=== PATIENT | male | born 1950 | race African-American/Black ===

== ENCOUNTER 2020-09-15 13:52 | Inpatient (IN) ==
[2020-09-15 16:40] LABS: Basophils % 0.4 % (0.0-0.8); Eosinophils # 0.1 10*3/uL (0.0-0.87); Eosinophils % 1.5 % (0.00-10.9); Immature Granulocytes % 0.5 %; Immature Granulocytes Absolute 0.04 #; Lymphocytes # 1.6 10*3/uL (1.4-4.0); Lymphocytes % 19.4 % (21.2-54.2); Mean Corpuscular HGB Conc 24.6 GM/DL (32-36); Mean Corpuscular Volume 61.2 FL (87-102); Mean Platelet Volume 8.5 FL (9.6-12.0); Monocytes % 5.1 % (1.7-12.7); NRBC # 0.03 10*3/uL; Neutrophils % 73.1 % (38.7-73.9); Platelet Count 600 T/CUMM (130-400); Red Blood Count 3.92 MC/CUMM (3.8-5.5); Red Cell Distribution Width 23.6 % (9.3-17.3); White Blood Count 8.2 T/CUMM (4-12)
[2020-09-15 16:46] LABS: Hemoglobin 5.9 GM/DL (14.0-18.0)
[2020-09-15] MEDS ORDERED: SODIUM CHLORIDE 0.9% 1,000 ML IV PRN ×2 (16:50→21:41)
[2020-09-15 17:05] LABS: Albumin 3.9 G/DL (3.4-5.0); Bilirubin,Total 0.4 MG/DL (0.2-1.0); Calcium 9.5 MG/DL (8.5-10.1); Osmolality,Calculated 268.1 MOS/KG (273-304); Potassium 3.6 MMOL/L (3.5-5.1); Total Protein 9.4 G/DL (6.4-8.2)
[2020-09-15 21:30] LABS: % Iron Saturation 2.2 % (18-50); Albumin 3.5 G/DL (3.4-5.0); Calcium 9.6 MG/DL (8.5-10.1); Ferritin 4.5 ng/ml (26-388); Osmolality,Calculated 273.8 MOS/KG (273-304); Potassium 3.4 MMOL/L (3.5-5.1)
[2020-09-15 21:32] LABS: Folate 10.21 NG/ML (5.38-24.0)
[2020-09-15 23:25] LABS: Bilirubin,Urine Negative (Negative); Blood, Urine Negative (Negative); Calcium Oxalate Crystals,Urine Occasional /HPF (Few); Glucose,Urine (UA) Negative (Negative); Hyaline Casts,Urine 5 /LPF (0-3); Ketones,Urine Negative (Negative); Mucus,Urine Occasional /LPF (Occasional); Nitrite,Urine Negative (Negative); Protein,Urine Negative; RBC,Urine 1 /HPF (0-4); Squamous Epithelial Cell,Urine Occasional /HPF (0-10); Urine Appearance CLEAR (Clear); Urine Color Yellow (Yellow); Urine Specific Gravity 1.021 (1.001-1.035); Urine Urobilinogen < 2.0 EU/DL (0.2-1.0); WBC,Urine 9 /HPF (0-6)
[2020-09-16 06:52] LABS: Basophils % 0.6 % (0.0-0.8); Eosinophils # 0.1 10*3/uL (0.0-0.87); Eosinophils % 1.4 % (0.00-10.9); Hematocrit 26.2 VOL% (42.0-52.0); Immature Granulocytes % 0.6 %; Immature Granulocytes Absolute 0.04 #; Lymphocytes # 1.4 10*3/uL (1.4-4.0); Lymphocytes % 19.9 % (21.2-54.2); Mean Platelet Volume 8.6 FL (9.6-12.0); Monocytes % 7.9 % (1.7-12.7); NRBC # 0.04 10*3/uL; Neutrophils % 69.6 % (38.7-73.9); Platelet Count 473 T/CUMM (130-400); Red Blood Count 4.03 MC/CUMM (3.8-5.5); Red Cell Distribution Width 29.9 % (9.3-17.3); White Blood Count 6.9 T/CUMM (4-12)
[2020-09-16 07:01] LABS: Hemoglobin 7.6 GM/DL (14.0-18.0)
[2020-09-16 07:14] LABS: Hypochromasia 2+; Target Cells Few
[2020-09-16 07:15] LABS: Microcytosis 2+; Ovalocytes Slight; Platelet Estimate Increased
[2020-09-16] MEDS: ZALEPLON 5 MG CAPSULE PO PRN (22:33)
[2020-09-17 05:25] LABS: Basophils % 0.6 % (0.0-0.8); Eosinophils # 0.2 10*3/uL (0.0-0.87); Eosinophils % 3.2 % (0.00-10.9); Hematocrit 26.2 VOL% (42.0-52.0); Hemoglobin 7.5 GM/DL (14.0-18.0); Immature Granulocytes % 0.3 %; Immature Granulocytes Absolute 0.02 #; Lymphocytes # 1.4 10*3/uL (1.4-4.0); Lymphocytes % 21.3 % (21.2-54.2); Mean Corpuscular HGB Conc 28.6 GM/DL (32-36); Mean Platelet Volume 8.9 FL (9.6-12.0); Monocytes % 8.4 % (1.7-12.7); NRBC # 0.03 10*3/uL; Neutrophils % 66.2 % (38.7-73.9); Platelet Count 465 T/CUMM (130-400); Red Blood Count 4.03 MC/CUMM (3.8-5.5); Red Cell Distribution Width 29.4 % (9.3-17.3); White Blood Count 6.5 T/CUMM (4-12)
[2020-09-17 05:32] LABS: PT Patient Result 11.4 SECS (9.8-11.9)
[2020-09-17 05:48] LABS: Calcium 9.2 MG/DL (8.5-10.1); Osmolality,Calculated 272.7 MOS/KG (273-304); Potassium 3.5 MMOL/L (3.5-5.1)
[2020-09-17 05:50] LABS: Hypochromasia 2+; Microcytosis 1+; Platelet Estimate Adequate; Target Cells Few
[2020-09-17] MEDS: BISACODYL 5 MG TABLET PO SCH ×4 (07:51→23:15)
[2020-09-17] MEDS: LACTATED RINGERS 1,000 ML IV SCH (09:20)
[2020-09-17] MEDS ORDERED: propofoL 200 MG/20 ML VIAL IV ONE (09:24)
[2020-09-17] MEDS ORDERED: LIDOCAINE 2% 5 ML VIAL ONE (09:24)
[2020-09-17] MEDS ORDERED: POLYETHYLENE GLYCOL POWDER 255 GM BOTTLE PO ONE (18:00)
[2020-09-17] MEDS ORDERED: MAGNESIUM CITRATE 300 ML BOTTLE PO ONE (21:00)
[2020-09-18 06:00] LABS: Calcium 10.1 MG/DL (8.5-10.1); Osmolality,Calculated 267.1 MOS/KG (273-304); Potassium 3.3 MMOL/L (3.5-5.1)
[2020-09-18] MEDS: LACTATED RINGERS 1,000 ML IV SCH (06:15)
[2020-09-18 06:37] LABS: Basophils % 0.4 % (0.0-0.8); Eosinophils # 0.2 10*3/uL (0.0-0.87); Eosinophils % 2.6 % (0.00-10.9); Hematocrit 28.1 VOL% (42.0-52.0); Immature Granulocytes % 0.4 %; Immature Granulocytes Absolute 0.03 #; Lymphocytes # 1.3 10*3/uL (1.4-4.0); Lymphocytes % 17.7 % (21.2-54.2); Mean Corpuscular HGB Conc 28.5 GM/DL (32-36); Mean Corpuscular Volume 65.2 FL (87-102); Mean Platelet Volume 8.9 FL (9.6-12.0); Monocytes % 7.7 % (1.7-12.7); NRBC # 0.02 10*3/uL; Neutrophils % 71.2 % (38.7-73.9); Platelet Count 472 T/CUMM (130-400); Red Blood Count 4.31 MC/CUMM (3.8-5.5); Red Cell Distribution Width 29.8 % (9.3-17.3); White Blood Count 7.6 T/CUMM (4-12)
[2020-09-18 06:46] LABS: Anisocytosis 1+; Hypochromasia 2+; Platelet Estimate Increased
[2020-09-18 06:47] LABS: Microcytosis 1+
[2020-09-18] MEDS ORDERED: ePHEDrine 50 MG/ML VIAL ONE (08:03)
[2020-09-18] MEDS ORDERED: propofoL 200 MG/20 ML VIAL IV ONE (08:33)
[2020-09-18] MEDS ORDERED: POTASSIUM CHLORIDE 20 MEQ TABLET PO ONE (16:30)
[2020-09-19 05:16] LABS: Basophils % 0.3 % (0.0-0.8); Eosinophils # 0.1 10*3/uL (0.0-0.87); Eosinophils % 1.1 % (0.00-10.9); Hematocrit 25.8 VOL% (42.0-52.0); Hemoglobin 7.3 GM/DL (14.0-18.0); Immature Granulocytes % 0.4 %; Immature Granulocytes Absolute 0.05 #; Lymphocytes # 1.4 10*3/uL (1.4-4.0); Lymphocytes % 11.5 % (21.2-54.2); Mean Corpuscular HGB Conc 28.3 GM/DL (32-36); Mean Platelet Volume 8.9 FL (9.6-12.0); Monocytes % 5.8 % (1.7-12.7); Neutrophils % 80.9 % (38.7-73.9); Platelet Count 384 T/CUMM (130-400); Red Blood Count 3.97 MC/CUMM (3.8-5.5); Red Cell Distribution Width 29.2 % (9.3-17.3); White Blood Count 11.8 T/CUMM (4-12)
[2020-09-19 05:36] LABS: Hypochromasia 2+
[2020-09-19 05:37] LABS: Calcium 9.3 MG/DL (8.5-10.1); Osmolality,Calculated 267.1 MOS/KG (273-304); Potassium 3.3 MMOL/L (3.5-5.1)
[2020-09-19 05:37] LABS: Microcytosis 1+; Platelet Estimate Adequate
[2020-09-19 05:44] LABS: Folate 8.62 NG/ML (5.38-24.0); Vitamin B12 312 PG/ML (211-911)
[2020-09-19 05:45] LABS: % Iron Saturation 3.4 % (18-50); Ferritin 11.5 ng/ml (26-388)
[2020-09-19 06:16] LABS: Sedimentation Rate-Westergren 55 MM/HR (0-20)
[2020-09-19] MEDS ORDERED: IRON SUCROSE 300 MG in SODIUM CHLORIDE 0.9% 100 ML IV ONE (07:47)
[2020-09-19] MEDS ORDERED: CYANOCOBALAMIN 1000 MCG/1 ML VIAL IM ONE (07:48)
[2020-09-19] MEDS ORDERED: SODIUM CHLORIDE 0.9% 1,000 ML IV PRN (07:49)
[2020-09-19] MEDS ORDERED: POTASSIUM CHLORIDE 20 MEQ TABLET PO ONE (07:49)
[2020-09-19] MEDS ORDERED: FERRIC GLUCONATE COMPLEX 125 MG in SODIUM CHLORIDE 0.9% 100 ML IV ONE (09:00)
[2020-09-19] MEDS: CHOLECALCIFEROL 1,000 UNIT TABLET PO SCH (09:01)
[2020-09-19] MEDS: CYANOCOBALAMIN 500 MCG TABLET PO SCH (09:01)
[2020-09-20 05:33] LABS: Calcium 9.3 MG/DL (8.5-10.1); Osmolality,Calculated 267.1 MOS/KG (273-304); Potassium 3.8 MMOL/L (3.5-5.1)
[2020-09-20 06:29] LABS: Basophils # 0.1 10*3/uL (0.0-0.2); Basophils % 0.6 % (0.0-0.8); Eosinophils # 0.3 10*3/uL (0.0-0.87); Eosinophils % 3.1 % (0.00-10.9); Hematocrit 32.4 VOL% (42.0-52.0); Immature Granulocytes % 0.4 %; Immature Granulocytes Absolute 0.04 #; Lymphocytes # 1.6 10*3/uL (1.4-4.0); Lymphocytes % 17.3 % (21.2-54.2); Mean Corpuscular HGB Conc 29.3 GM/DL (32-36); Mean Corpuscular Volume 72.3 FL (87-102); Mean Platelet Volume 9.2 FL (9.6-12.0); Monocytes % 6.8 % (1.7-12.7); Neutrophils % 71.8 % (38.7-73.9); Platelet Count 386 T/CUMM (130-400); Red Blood Count 4.48 MC/CUMM (3.8-5.5); White Blood Count 9.4 T/CUMM (4-12)
[2020-09-20 06:32] LABS: Hemoglobin 9.5 GM/DL (14.0-18.0)
[2020-09-20 06:58] LABS: Hypochromasia 1+; Microcytosis 1+; Platelet Estimate Adequate
[2020-09-20] MEDS: CHOLECALCIFEROL 1,000 UNIT TABLET PO SCH (09:01)
[2020-09-20] MEDS: CYANOCOBALAMIN 500 MCG TABLET PO SCH (09:01)
[2020-09-20] MEDS ORDERED: IRON SUCROSE 300 MG in SODIUM CHLORIDE 0.9% 100 ML IV ONE (09:11)
[2020-09-21 05:46] LABS: Calcium 9.5 MG/DL (8.5-10.1); Osmolality,Calculated 272.7 MOS/KG (273-304); Potassium 3.6 MMOL/L (3.5-5.1)
[2020-09-21 05:53] LABS: Basophils # 0.1 10*3/uL (0.0-0.2); Basophils % 0.8 % (0.0-0.8); Eosinophils # 0.3 10*3/uL (0.0-0.87); Eosinophils % 3.3 % (0.00-10.9); Hematocrit 33.6 VOL% (42.0-52.0); Hemoglobin 9.9 GM/DL (14.0-18.0); Immature Granulocytes % 0.7 %; Immature Granulocytes Absolute 0.06 #; Lymphocytes # 1.5 10*3/uL (1.4-4.0); Lymphocytes % 16.9 % (21.2-54.2); Mean Corpuscular HGB Conc 29.5 GM/DL (32-36); Mean Corpuscular Volume 72.4 FL (87-102); Mean Platelet Volume 8.6 FL (9.6-12.0); Monocytes % 7.7 % (1.7-12.7); Neutrophils % 70.6 % (38.7-73.9); Platelet Count 380 T/CUMM (130-400); Red Blood Count 4.64 MC/CUMM (3.8-5.5); White Blood Count 8.7 T/CUMM (4-12)
[2020-09-21 05:59] LABS: Platelet Estimate Adequate
[2020-09-21 06:00] LABS: Hypochromasia 1+; Microcytosis 1+
[2020-09-21] MEDS ORDERED: ALBUMIN 5% 25.0 GM/500 ML VIAL IV ONE (07:24)
[2020-09-21] MEDS ORDERED: BUPIVACAINE 0.5% 50 ML VIAL ONE (07:25)
[2020-09-21] MEDS ORDERED: EPINEPHrine 1 MG/ML VIAL ONE (07:26)
[2020-09-21] MEDS ORDERED: propofoL 200 MG/20 ML VIAL IV ONE (07:26)
[2020-09-21] MEDS ORDERED: DEXAMETHASONE 4 MG/1 ML VIAL ONE ×2 (07:26→10:03)
[2020-09-21] MEDS ORDERED: ONDANSETRON 4 MG/2 ML VIAL ONE (07:26)
[2020-09-21] MEDS ORDERED: LIDOCAINE 2% 5 ML VIAL ONE (07:26)
[2020-09-21] MEDS ORDERED: ROCURONIUM 50 MG/5 ML VIAL IV ONE ×2 (07:26→10:02)
[2020-09-21] MEDS ORDERED: fentaNYL 100 MCG/2 ML VIAL ONE (07:27)
[2020-09-21] MEDS ORDERED: KETAMINE 500 MG/10 ML VIAL ONE (07:36)
[2020-09-21] MEDS ORDERED: DEXMEDETOMIDINE 200 MCG/2 ML VIAL ONE (07:36)
[2020-09-21] MEDS ORDERED: LIDOCAINE 1%/EPI INJ 20 ML VIAL ONE (07:50)
[2020-09-21] MEDS ORDERED: INDOCYANINE GREEN 25 MG VIAL IV ONE (07:50)
[2020-09-21] MEDS ORDERED: BUPIVACAINE MPF 0.25% 30 ML VIAL ONE (07:50)
[2020-09-21] MEDS ORDERED: LACTATED RINGERS 1,000 ML IV SCH (08:00)
[2020-09-21 08:57] LABS: Hemoglobin A1 (Alkaline) 97.9 % (96.5-98.5); Hemoglobin A2 (Alkaline) 2.1 % (1.5-3.5)
[2020-09-21] MEDS: CYANOCOBALAMIN 500 MCG TABLET PO SCH (09:42)
[2020-09-21] MEDS: CHOLECALCIFEROL 1,000 UNIT TABLET PO SCH (09:42)
[2020-09-21] MEDS ORDERED: PHENYLEPHRINE 1 MG/10 ML SYRINGE IV ONE (09:45)
[2020-09-21] MEDS ORDERED: DESFLURANE 1 UNIT/15 MINUTE INH ONE (10:14)
[2020-09-21] MEDS ORDERED: SUGAMMADEX 200 MG/2 ML VIAL IV ONE (11:52)
[2020-09-21] MEDS ORDERED: SEVOFLURANE 1 UNIT/15 MINUTE INH ONE (11:53)
[2020-09-21] MEDS ORDERED: LACTATED RINGERS 1,000 ML IV ONE (11:53)
[2020-09-21 12:22] LABS: Bilirubin,Urine Negative (Negative); Blood, Urine Large mg/dL (Negative); Glucose,Urine (UA) Negative (Negative); Hyaline Casts,Urine 1 /LPF (0-3); Ketones,Urine Negative (Negative); Mucus,Urine Few /LPF (Occasional); Nitrite,Urine Negative (Negative); Protein,Urine Negative; RBC,Urine 169 /HPF (0-4); Urine Appearance CLEAR (Clear); Urine Color Yellow (Yellow); Urine Specific Gravity 1.018 (1.001-1.035); Urine Urobilinogen < 2.0 EU/DL (0.2-1.0)
[2020-09-21] MEDS ORDERED: ONDANSETRON 4 MG/2 ML VIAL IV PRN (12:23)
[2020-09-21 14:56] LABS: Hematocrit 33.8 VOL% (42.0-52.0); Hemoglobin 10.1 GM/DL (14.0-18.0)
[2020-09-21] MEDS: HYDROmorphone 2 MG/1 ML VIAL IV PRN (15:12)
[2020-09-21 21:05] LABS: Hematocrit 36.2 VOL% (42.0-52.0)
[2020-09-21 21:06] LABS: Hemoglobin 10.4 GM/DL (14.0-18.0)
[2020-09-22] MEDS: HYDROmorphone 2 MG/1 ML VIAL IV PRN ×3 (04:09→17:21)
[2020-09-22 05:52] LABS: Osmolality,Calculated 277.5 MOS/KG (273-304); Potassium 4.1 MMOL/L (3.5-5.1)
[2020-09-22 06:33] LABS: Basophils % 0.2 % (0.0-0.8); Hematocrit 33.2 VOL% (42.0-52.0); Hemoglobin 9.9 GM/DL (14.0-18.0); Immature Granulocytes % 0.6 %; Immature Granulocytes Absolute 0.08 #; Lymphocytes # 0.8 10*3/uL (1.4-4.0); Lymphocytes % 6.1 % (21.2-54.2); Mean Corpuscular HGB Conc 29.8 GM/DL (32-36); Mean Corpuscular Volume 72.3 FL (87-102); Mean Platelet Volume 9.1 FL (9.6-12.0); Monocytes % 6.7 % (1.7-12.7); NRBC # 0.02 10*3/uL; Neutrophils % 86.4 % (38.7-73.9); Platelet Count 434 T/CUMM (130-400); Red Blood Count 4.59 MC/CUMM (3.8-5.5)
[2020-09-22] MEDS: CHOLECALCIFEROL 1,000 UNIT TABLET PO SCH (08:39)
[2020-09-22] MEDS: CYANOCOBALAMIN 500 MCG TABLET PO SCH (08:39)
[2020-09-22] MEDS: DEXTROSE 5% LACTATED RINGERS 1,000 ML IV SCH ×2 (08:39→16:54)
[2020-09-22] MEDS: PANTOPRAZOLE 40 MG VIAL IV SCH (08:57)
[2020-09-22] MEDS: ZALEPLON 5 MG CAPSULE PO PRN (21:16)
[2020-09-23] MEDS: DEXTROSE 5% LACTATED RINGERS 1,000 ML IV SCH ×3 (01:06→19:10)
[2020-09-23] MEDS: HYDROmorphone 2 MG/1 ML VIAL IV PRN ×3 (01:29→23:32)
[2020-09-23 07:05] LABS: Basophils % 0.3 % (0.0-0.8); Eosinophils # 0.1 10*3/uL (0.0-0.87); Eosinophils % 1.1 % (0.00-10.9); Immature Granulocytes % 0.5 %; Immature Granulocytes Absolute 0.06 #; Lymphocytes # 1.4 10*3/uL (1.4-4.0); Lymphocytes % 11.8 % (21.2-54.2); Mean Platelet Volume 9.1 FL (9.6-12.0); Monocytes % 5.4 % (1.7-12.7); Neutrophils % 80.9 % (38.7-73.9); Platelet Count 337 T/CUMM (130-400); Red Blood Count 4.19 MC/CUMM (3.8-5.5)
[2020-09-23 07:18] LABS: Calcium 9.3 MG/DL (8.5-10.1); Osmolality,Calculated 273.7 MOS/KG (273-304); Potassium 3.3 MMOL/L (3.5-5.1)
[2020-09-23 07:43] LABS: Hypochromasia 1+; Microcytosis 1+; Platelet Estimate Adequate
[2020-09-23] MEDS: CHOLECALCIFEROL 1,000 UNIT TABLET PO SCH (08:54)
[2020-09-23] MEDS: CYANOCOBALAMIN 500 MCG TABLET PO SCH (08:54)
[2020-09-23] MEDS: PANTOPRAZOLE 40 MG VIAL IV SCH (08:54)
[2020-09-23] MEDS: FERROUS SULFATE 325 MG TABLET PO SCH (08:54)
[2020-09-23] MEDS ORDERED: POTASSIUM CHLORIDE 20 MEQ TABLET PO ONE (12:00)
[2020-09-23] MEDS: ACETAMINOPHEN 325 MG TABLET PO PRN (16:38)
[2020-09-24 05:39] LABS: Calcium 9.7 MG/DL (8.5-10.1); Osmolality,Calculated 274.5 MOS/KG (273-304); Potassium 3.6 MMOL/L (3.5-5.1)
[2020-09-24 06:13] LABS: Basophils # 0.1 10*3/uL (0.0-0.2); Basophils % 0.5 % (0.0-0.8); Eosinophils # 0.2 10*3/uL (0.0-0.87); Eosinophils % 1.8 % (0.00-10.9); Hematocrit 34.2 VOL% (42.0-52.0); Hemoglobin 9.8 GM/DL (14.0-18.0); Immature Granulocytes % 0.7 %; Immature Granulocytes Absolute 0.09 #; Lymphocytes # 1.2 10*3/uL (1.4-4.0); Mean Corpuscular HGB Conc 28.7 GM/DL (32-36); Mean Corpuscular Volume 73.7 FL (87-102); Mean Platelet Volume 9.3 FL (9.6-12.0); Monocytes % 5.5 % (1.7-12.7); Neutrophils % 82.5 % (38.7-73.9); Platelet Count 391 T/CUMM (130-400); Red Blood Count 4.64 MC/CUMM (3.8-5.5)
[2020-09-24 06:19] LABS: Hypochromasia 1+; Microcytosis 1+; Platelet Estimate Adequate
[2020-09-24] MEDS: FERROUS SULFATE 325 MG TABLET PO SCH (09:02)
[2020-09-24] MEDS: CYANOCOBALAMIN 500 MCG TABLET PO SCH (09:02)
[2020-09-24] MEDS: CHOLECALCIFEROL 1,000 UNIT TABLET PO SCH (09:02)
[2020-09-24] MEDS: PANTOPRAZOLE 40 MG VIAL IV SCH (09:03)
[2020-09-24] MEDS: DEXTROSE 5% LACTATED RINGERS 1,000 ML IV SCH ×2 (14:07→23:18)
[2020-09-24] MEDS: HYDROmorphone 2 MG/1 ML VIAL IV PRN ×2 (14:40→23:43)
[2020-09-25] MEDS: HYDROmorphone 2 MG/1 ML VIAL IV PRN (05:10)
[2020-09-25 05:48] LABS: Basophils % 0.3 % (0.0-0.8); Eosinophils # 0.3 10*3/uL (0.0-0.87); Eosinophils % 2.7 % (0.00-10.9); Hematocrit 32.3 VOL% (42.0-52.0); Hemoglobin 9.5 GM/DL (14.0-18.0); Immature Granulocytes % 0.4 %; Immature Granulocytes Absolute 0.04 #; Lymphocytes # 0.9 10*3/uL (1.4-4.0); Lymphocytes % 9.4 % (21.2-54.2); Mean Corpuscular HGB Conc 29.4 GM/DL (32-36); Mean Corpuscular Volume 73.4 FL (87-102); Mean Platelet Volume 8.8 FL (9.6-12.0); Monocytes % 6.3 % (1.7-12.7); Neutrophils % 80.9 % (38.7-73.9); Platelet Count 400 T/CUMM (130-400); White Blood Count 9.5 T/CUMM (4-12)
[2020-09-25 06:24] LABS: Calcium 9.4 MG/DL (8.5-10.1); Osmolality,Calculated 277.4 MOS/KG (273-304); Potassium 3.8 MMOL/L (3.5-5.1)
[2020-09-25 06:27] LABS: Hypochromasia 1+
[2020-09-25 06:28] LABS: Anisocytosis 1+; Microcytosis 1+; Spherocytes Slight; Target Cells Slight; Tear Drop Cells Slight
[2020-09-25 06:29] LABS: Platelet Estimate Normal
[2020-09-25] MEDS: DEXTROSE 5% LACTATED RINGERS 1,000 ML IV SCH ×2 (06:38→20:59)
[2020-09-25] MEDS: PANTOPRAZOLE 40 MG VIAL IV SCH (09:22)
[2020-09-25] MEDS: FERROUS SULFATE 325 MG TABLET PO SCH (10:20)
[2020-09-25] MEDS: CYANOCOBALAMIN 500 MCG TABLET PO SCH (10:20)
[2020-09-25] MEDS: CHOLECALCIFEROL 1,000 UNIT TABLET PO SCH (10:21)
[2020-09-25] MEDS ORDERED: LACTULOSE 320 GM/480 ML BOTTLE RECTAL SCH (10:30)
[2020-09-25] MEDS: METOCLOPRAMIDE 10 MG/2 ML VIAL IV SCH ×2 (11:59→18:28)
[2020-09-25] MEDS: ACETAMINOPHEN 325 MG TABLET PO PRN (12:00)
[2020-09-26] MEDS: METOCLOPRAMIDE 10 MG/2 ML VIAL IV SCH ×5 (00:15→23:49)
[2020-09-26] MEDS: DEXTROSE 5% LACTATED RINGERS 1,000 ML IV SCH ×3 (06:19→16:17)
[2020-09-26 06:32] LABS: Basophils % 0.5 % (0.0-0.8); Eosinophils # 0.2 10*3/uL (0.0-0.87); Hematocrit 27.9 VOL% (42.0-52.0); Hemoglobin 8.2 GM/DL (14.0-18.0); Immature Granulocytes % 0.4 %; Immature Granulocytes Absolute 0.03 #; Lymphocytes # 0.8 10*3/uL (1.4-4.0); Lymphocytes % 10.2 % (21.2-54.2); Mean Corpuscular HGB Conc 29.4 GM/DL (32-36); Mean Platelet Volume 9.3 FL (9.6-12.0); Monocytes % 6.5 % (1.7-12.7); Neutrophils % 79.4 % (38.7-73.9); Platelet Count 412 T/CUMM (130-400); Red Blood Count 3.77 MC/CUMM (3.8-5.5); White Blood Count 7.6 T/CUMM (4-12)
[2020-09-26 06:45] LABS: Calcium 8.9 MG/DL (8.5-10.1); Osmolality,Calculated 275.5 MOS/KG (273-304); Potassium 3.4 MMOL/L (3.5-5.1)
[2020-09-26] MEDS: PANTOPRAZOLE 40 MG VIAL IV SCH (08:26)
[2020-09-26 08:37] LABS: Anisocytosis 1+; Hypochromasia 2+; Ovalocytes Few; Platelet Estimate Normal; Poikilocytosis Slight; Polychromasia Slight
[2020-09-26 08:38] LABS: Macrocytosis Slight
[2020-09-26] MEDS: CYANOCOBALAMIN 500 MCG TABLET PO SCH (09:44)
[2020-09-26] MEDS: CHOLECALCIFEROL 1,000 UNIT TABLET PO SCH (09:44)
[2020-09-26] MEDS: FERROUS SULFATE 325 MG TABLET PO SCH (09:44)
[2020-09-26] MEDS ORDERED: POTASSIUM CHLORIDE 20 MEQ/15 ML UDCUP PO ONE (14:43)
[2020-09-27] MEDS: DEXTROSE 5% LACTATED RINGERS 1,000 ML IV SCH ×3 (03:05→23:50)
[2020-09-27] MEDS: METOCLOPRAMIDE 10 MG/2 ML VIAL IV SCH ×4 (05:21→23:53)
[2020-09-27 06:52] LABS: Basophils % 0.4 % (0.0-0.8); Eosinophils # 0.2 10*3/uL (0.0-0.87); Eosinophils % 2.4 % (0.00-10.9); Hematocrit 28.9 VOL% (42.0-52.0); Hemoglobin 8.6 GM/DL (14.0-18.0); Immature Granulocytes % 0.6 %; Immature Granulocytes Absolute 0.04 #; Lymphocytes # 1.1 10*3/uL (1.4-4.0); Lymphocytes % 14.7 % (21.2-54.2); Mean Corpuscular HGB Conc 29.8 GM/DL (32-36); Mean Corpuscular Volume 73.2 FL (87-102); Mean Platelet Volume 9.5 FL (9.6-12.0); Monocytes % 6.1 % (1.7-12.7); Neutrophils % 75.8 % (38.7-73.9); Platelet Count 495 T/CUMM (130-400); Red Blood Count 3.95 MC/CUMM (3.8-5.5); White Blood Count 7.2 T/CUMM (4-12)
[2020-09-27 07:15] LABS: Osmolality,Calculated 272.5 MOS/KG (273-304); Potassium 3.2 MMOL/L (3.5-5.1)
[2020-09-27 07:40] LABS: Anisocytosis 2+; Burr Cells Few; Platelet Estimate Normal; Poikilocytosis 1+; Target Cells Few
[2020-09-27 07:41] LABS: Macrocytosis Slight; Ovalocytes Few; Polychromasia 1+; Tear Drop Cells Few
[2020-09-27] MEDS: FERROUS SULFATE 325 MG TABLET PO SCH (08:28)
[2020-09-27] MEDS: PANTOPRAZOLE 40 MG VIAL IV SCH (08:28)
[2020-09-27] MEDS: CYANOCOBALAMIN 500 MCG TABLET PO SCH (08:28)
[2020-09-27] MEDS: CHOLECALCIFEROL 1,000 UNIT TABLET PO SCH (08:28)
[2020-09-27] MEDS ORDERED: POTASSIUM CHLORIDE 20 MEQ/15 ML UDCUP PO ONE (09:55)
[2020-09-27] MEDS ORDERED: LORazepam 2 MG/1 ML VIAL IV PRN (15:06)
[2020-09-27] MEDS ORDERED: OLANZapine 10 MG VIAL IM ONE (18:34)
[2020-09-27] MEDS: MELATONIN 3 MG TABLET PO SCH (20:42)
[2020-09-28] MEDS: METOCLOPRAMIDE 10 MG/2 ML VIAL IV SCH ×3 (05:17→19:05)
[2020-09-28] MEDS: PANTOPRAZOLE 40 MG VIAL IV SCH (08:43)
[2020-09-28] MEDS: FERROUS SULFATE 325 MG TABLET PO SCH (08:43)
[2020-09-28] MEDS: CHOLECALCIFEROL 1,000 UNIT TABLET PO SCH (08:43)
[2020-09-28] MEDS: CYANOCOBALAMIN 500 MCG TABLET PO SCH (08:43)
[2020-09-28] MEDS: DEXTROSE 5% LACTATED RINGERS 1,000 ML IV SCH ×2 (10:13→20:15)
[2020-09-28] MEDS ORDERED: POTASSIUM CHLORIDE 20 MEQ/15 ML UDCUP PO ONE (11:00)
[2020-09-28] MEDS: MELATONIN 3 MG TABLET PO SCH (21:03)
[2020-09-29] MEDS: METOCLOPRAMIDE 10 MG/2 ML VIAL IV SCH (05:25)
[2020-09-29 06:04] LABS: Basophils % 0.5 % (0.0-0.8); Eosinophils # 0.2 10*3/uL (0.0-0.87); Eosinophils % 2.6 % (0.00-10.9); Hematocrit 32.4 VOL% (42.0-52.0); Immature Granulocytes % 0.5 %; Immature Granulocytes Absolute 0.04 #; Lymphocytes # 1.1 10*3/uL (1.4-4.0); Lymphocytes % 13.6 % (21.2-54.2); Mean Corpuscular HGB Conc 30.9 GM/DL (32-36); Mean Corpuscular Volume 73.1 FL (87-102); Mean Platelet Volume 9.2 FL (9.6-12.0); Neutrophils % 76.8 % (38.7-73.9); Platelet Count 605 T/CUMM (130-400); Red Blood Count 4.43 MC/CUMM (3.8-5.5); White Blood Count 7.7 T/CUMM (4-12)
[2020-09-29 06:28] LABS: Hypochromasia 2+; Polychromasia Slight
[2020-09-29 06:29] LABS: Anisocytosis 1+; Microcytosis 1+; Ovalocytes Slight; Target Cells Slight; Tear Drop Cells Slight
[2020-09-29 06:30] LABS: Platelet Estimate Increased
[2020-09-29 06:33] LABS: Calcium 9.6 MG/DL (8.5-10.1); Osmolality,Calculated 268.8 MOS/KG (273-304); Potassium 3.8 MMOL/L (3.5-5.1)
[2020-09-29] MEDS: PANTOPRAZOLE 40 MG VIAL IV SCH (08:44)
[2020-09-29] MEDS: CHOLECALCIFEROL 1,000 UNIT TABLET PO SCH (08:44)
[2020-09-29] MEDS: FERROUS SULFATE 325 MG TABLET PO SCH (08:44)
[2020-09-29] MEDS: CYANOCOBALAMIN 500 MCG TABLET PO SCH (08:45)
[2020-09-29 12:01] VITALS: BP 141/92
[2020-09-29] MEDS: DEXTROSE 5% LACTATED RINGERS 1,000 ML IV SCH ×2 (14:52→16:03)
[2020-09-30] MEDS ORDERED: PANTOPRAZOLE 40 MG TABLET PO SCH (06:30)
== END 2020-09-29 16:08 | disposition swing bed (61) | DRG 329 ==
LOC: N.ED 13:52 → N.EDINP 13:52 → N.5E 19:55 → SUATTDRO 09-16 12:28
PROVIDERS: ADMIT Internal Medicine; ATTEND Internal Medicine